=== PATIENT | male | born 1970 | race Caucasian/White ===

== ENCOUNTER 2016-11-02 11:37 | Emergency (ER) | payer OTHER ==
--- NOTE | 2016-11-02 13:20 | ED Physician Documentation ---
History of Present Illness - Stated complaint Stated Complaint: ARM/CHEST PX/ANXIETY ATTACK - Chief complaint Chief Complaint: General - History obtained from History obtained from: Patient - History of Present Illness Timing: How many weeks ago (several) Pain level max: 3 Pain level now: 0 Improved by: nothing Worsened by: nothing - Additonal information Additional information: Patient is a 46-year-old male who presented to the emergency department with intermittent numbness and tingling to the bilateral feet. States that his feet have been colder than usual as well. No leg pain. No pain when walking and playing 18 holes of golf. States that he golfs 18 holes almost daily. States that his mother recently and he had a panic attack last night. Feels better now. States that he did have slight chest pain at that time, but it was typical for his panic attack. Review of Systems Ten Systems: 10 systems reviewed and negative Constitutional: denies: Fever, Chills Nose: denies: Rhinorrhea / runny nose, Congestion Throat: denies: Sore throat Cardiac: denies: Palpitations, Pedal edema, Calf pain Respiratory: denies: Dyspnea, Cough, Hemoptysis, Wheezing GI: denies: Abdominal Pain, Nausea, Vomiting, Diarrhea Skin: denies: Rash Musculoskeletal: denies: Neck pain, Back pain Neurologic: denies: Headache PD PAST MEDICAL HISTORY - Past Medical History Cardiovascular: Hypertension, High cholesterol GI: Diverticulitis Psych: Anxiety - Past Surgical History Past Surgical History: Yes General: Gastric surgery - Present Medications Home Medications: Ambulatory Orders Medication Instructions Recorded Confirmed Hydrocodone/Acetaminophen [[place] 1 each PO Q6H PRN #20 tablet 05/18/16 11/02/16 5-325 Tablet] Losartan [Cozaar] 25 mg PO DAILY 05/18/16 11/02/16 Polyethylene Glycol 3350 [Miralax] 17 gm PO DAILY 05/18/16 11/02/16 busPIRone [Buspar] 25 mg PO BID 05/18/16 11/02/16 - Allergies Allergies/Adverse Reactions: Allergies Allergy/AdvReac Type Severity Reaction Status Date / Time No Known Drug Allergies Allergy Verified 05/18/16 20:28 - Social History Does the pt smoke?: No Smoking Status: Former smoker Does the pt drink ETOH?: Yes Does the pt have substance abuse?: No - Immunizations Immunizations are current?: Yes - POLST Patient has POLST: No PD ED PE NORMAL - Vitals Vital signs reviewed: Yes - General General: Alert and oriented X 3, No acute distress, Well developed/nourished - HEENT HEENT: PERRL, Moist mucous membranes - Neck Neck: Supple, no meningeal sign - Cardiac Cardiac: RRR, No murmur, Strong equal pulses - Respiratory Respiratory: No respiratory distress, Clear bilaterally - Abdomen Abdomen: Soft, Non tender, Non distended - Derm Derm: Warm and dry - Extremities Extremities: No deformity, No edema, No calf tenderness / cord, Other (2+ B pedal and PT pulses. NVI. Slight mottling to the skin.) - Neuro Neuro: Alert and oriented X 3, No motor deficit, No sensory deficit - Psych Psych: Normal mood, Normal affect Results - Vitals Vitals: Vital Signs - 24 hr 11/02/16 11/02/16 11:40 13:24 Temperature 36.3 C L 36.4 C L Heart Rate 69 59 L Respiratory 18 18 Rate Blood Pressure 140/98 H 139/99 H O2 Saturation 100 98 Oxygen O2 Source Room air - EKG (time done) 1151 Rate: Rate (enter#) (63) Rhythm: NSR [place]: Normal Intervals: Normal [place] QRS: Normal Ischemia: Normal ST segments Computer interpretation: Agree with computer PD MEDICAL DECISION MAKING - ED course Complexity details: reviewed results, re-evaluated patient, considered differential (No ST elevation [place], no aortic dissection, no PE, no tension pneumothorax, no aortic aneurysm), d/w patient ED course: Patient is a 46-year-old male who presents to the emergency department what appears to be an anxiety attack. He has a normal EKG. He declines any blood work or chest x-ray to evaluate for potential cardiac cause. He states that he notices anxiety and refuses any further workup for this. He also appears to have mottled feet bilaterally, though good pulses and brisk cap refill. Will have him follow-up with his doctor for further evaluation and care. Does not have symptoms of claudication and he does walk 18 holes of golf per day. Patient is well-appearing, nontoxic. Afebrile. Has been under recent stress since his mother a few days ago. Patient counseled regarding signs and symptoms for which I believe and urgent re-evaluation would be necessary. Patient with good understanding of and agreement to plan and is comfortable going home at this time This document was made in part using voice recognition software. While efforts are made to proofread this document, sound alike and grammatical errors may occur. Departure - Departure Disposition: 01 Home, Self Care Clinical Impression: Mottled skin, Anxiety Condition: Good Instructions: ED Panic Attack Follow-Up: Bruce Clement DO [Primary Care Provider] - Within 1 week Comments: You should follow up with your doctor to have further testing performed. This may include ultrasounds of your legs, thyroid testing, and tissue oxygenation of your feet. Return if you worsen. Your blood pressure was elevated today on check in to the emergency department. This does not mean that you have hypertension, it is a common phenomenon to check into the emergency department and have elevated blood pressure. I recommend that you see your primary care physician within the week to have it rechecked when you're feeling better. Discharge Date/Time: 11/02/16 13:29
[2016-11-02 13:25] VITALS: BP 139/99
== END 2016-11-02 13:29 | disposition home or self-care (01) ==
LOC: ED 11:37
DX: L98.8 Other specified disorders of the skin and subcutaneous tissue (principal); I10 Essential (primary) hypertension; E78.00 Pure hypercholesterolemia, unspecified; Z87.19 Personal history of other diseases of the digestive system; Z87.891 Personal history of nicotine dependence
CPT/HCPCS: 93005; 93010; 99283

== ENCOUNTER 2017-06-21 14:00 | Emergency (ER) | payer OTHER ==
--- NOTE | 2017-06-21 14:10 | ED Physician Documentation ---
History of Present Illness - Stated complaint Stated Complaint: SOA/DIZZY/CP - Chief complaint Chief Complaint: Cardiac - Additonal information Additional information: hx from pt 47 male hx HTN fhx vascular dz has fairly severe anxiety that always makes him feel soa he is more SOA than nl last theee days with chest tightness and today about 1 hr had near syncope and still feels weak with achey tingly extremities Review of Systems Constitutional: denies: Fever Throat: denies: Sore throat Cardiac: reports: Chest pain / pressure Respiratory: reports: Dyspnea GI: denies: Abdominal Pain, Nausea, Vomiting Musculoskeletal: denies: Neck pain, Back pain, Extremity pain, Extremity swelling Endocrine: denies: Easy bruising / bleeding Immunocompromised: denies: Immunocompromised PD PAST MEDICAL HISTORY - Past Medical History Cardiovascular: Hypertension, High cholesterol GI: Diverticulitis Psych: Anxiety - Past Surgical History Past Surgical History: Yes General: Gastric surgery - Present Medications Home Medications: Ambulatory Orders Medication Instructions Recorded Confirmed Losartan [Cozaar] 50 mg PO DAILY 05/18/16 11/02/16 Polyethylene Glycol 3350 [Miralax] 17 gm PO DAILY 05/18/16 11/02/16 Cetirizine [ZyrTEC] 10 mg PO DAILY 06/21/17 06/21/17 LORazepam [Ativan] 0.5 mg PO DAILY PRN #6 tablet 06/21/17 - Allergies Allergies/Adverse Reactions: Allergies Allergy/AdvReac Type Severity Reaction Status Date / Time No Known Drug Allergies Allergy Verified 05/18/16 20:28 - Social History Does the pt smoke?: No Smoking Status: Former smoker Does the pt drink ETOH?: Yes Does the pt have substance abuse?: No - Immunizations Immunizations are current?: Yes - POLST Patient has POLST: No PD ED PE NORMAL - Vitals Vital signs reviewed: Yes - Neck Neck: Supple, no meningeal sign - Cardiac Cardiac: RRR, No murmur - Respiratory Respiratory: No respiratory distress, Clear bilaterally - Abdomen Abdomen: Soft, Non tender - Derm Derm: Normal color - Extremities Extremities: No deformity, Normal ROM s pain, No edema, No calf tenderness / cord - Neuro Neuro: Alert and oriented X 3 Results - Vitals Vitals: Vital Signs - 24 hr 06/21/17 14:04 Temperature 36.6 C Heart Rate 68 Respiratory 20 Rate Blood Pressure 136/98 H O2 Saturation 100 Oxygen O2 Source Room air - EKG (time done) 1409 Rate: Rate (enter#) (70) Rhythm: NSR Intervals: RBBB (new from October 2016) Ischemia: No: ST elevation c/w ischemia - Labs Labs: Laboratory Tests 06/21/17 06/21/17 06/21/17 14:12 14:12 14:12 WBC 6.3 RBC 4.77 Hgb 15.8 Hct 45.7 MCV 95.8 H MCH 33.1 H MCHC 34.6 RDW 13.2 Plt Count 212 MPV 9.1 Neut # 3.5 Lymph # 1.8 [place] # 0.6 Eos # 0.3 Baso # 0.1 Absolute Nucleated RBC 0.00 Nucleated RBC % 0.0 D-Dimer Sodium 141 Potassium 4.2 Chloride 106 Carbon Dioxide 28 Anion Gap 7.0 BUN 16 Creatinine 1.0 Estimated GFR (MDRD) 80 L Glucose 73 Calcium 8.9 Total Bilirubin 0.8 AST 19 ALT 14 Alkaline Phosphatase 104 Troponin I < 0.04 Total Protein 7.1 Albumin 4.5 Globulin 2.6 Albumin/Globulin Ratio 1.7 Lipase 22 06/21/17 14:12 WBC RBC Hgb Hct MCV MCH MCHC RDW Plt Count MPV Neut # Lymph # [place] # Eos # Baso # Absolute Nucleated RBC Nucleated RBC % D-Dimer < 200.0 L Sodium Potassium Chloride Carbon Dioxide Anion Gap BUN Creatinine Estimated GFR (MDRD) Glucose Calcium Total Bilirubin AST ALT Alkaline Phosphatase Troponin I Total Protein Albumin Globulin Albumin/Globulin Ratio Lipase - Rads (name of study) CXR Radiology: See rad report (NACPD) PD MEDICAL DECISION MAKING - ED course ED course: RBBB is new raises concern of PE but no risk factors, no leg pain or swelling,neg PERC neg d dimer and neg trop after 3 days of CP and SOA today with near syncope as well tele in ER for several hr and no ectopy unable to admit to [facility] today for further tele and echo due to tele not working on med surg pt feeling better after ativan states he walked 18 holes of gold a few days ago without any sx will dc to p PMD for recheck and perhaps event monitor and echo as an outpt Departure - Departure Disposition: 01 Home, Self Care Clinical Impression: Near syncope Chest pain Qualifiers: Chest pain type: unspecified Qualified Code(s): R07.9 - Chest pain, unspecified Dyspnea Qualifiers: Dyspnea type: unspecified Qualified Code(s): R06.00 - Dyspnea, unspecified Condition: Good Instructions: ED Chest Pain Atypical Unkn Cause, ED Dyspnea Shortness of Breath , ED Near Syncope Unkn Follow-Up: Bruce Clement DO [Primary Care Provider] - Prescriptions: LORazepam [Ativan] 0.5 mg PO DAILY PRN #6 tablet PRN Reason: severe anxiety Comments: All your tests today came back fine - the EKG showed an electric delay called a right bundle branch block but the blood work does not suggest a heart attack or blood clot in the lung and the xray does not show any lung problems, congestive heart failure, an enlarged heart or an aneurysm of the aorta. Since you are feeling better and your labs are reassuring, I think it is safe for you to go home. You take ativan very sparingly if the anxiety is severe Please follow up with your PMD for a recheck before the weekend and to discuss a wear at home heart monitor and ultrasound of your heart Return if worse
[2017-06-21 14:22] LABS: BASOPHILS # (AUTO) 0.1 10^3/uL (0.0-0.1); BASOPHILS % (AUTO) 1.1 %; EOSINOPHILS # (AUTO) 0.3 10^3/uL (0.0-0.7); HGB - HEMOGLOBIN 15.8 g/dL (14.0-18.0); LYMPHOCYTES # (AUTO) 1.8 10^3/uL (1.5-3.5); LYMPHOCYTES % (AUTO) 28.1 %; MEAN CORPUSCULAR HEMOGLOBIN 33.1 pg (27.0-31.0); MEAN CORPUSCULAR HGB CONC 34.6 g/dL (32.0-36.0); MEAN CORPUSCULAR VOLUME 95.8 fL (80.0-94.0); MEAN PLATELET VOLUME 9.1 fL (7.4-11.4); MONOCYTES # (AUTO) 0.6 10^3/uL (0.0-1.0); MONOCYTES % (AUTO) 9.5 %; NEUTROPHILS # (AUTO) 3.5 10^3/uL (1.5-6.6); NEUTROPHILS % (AUTO) 56.3 %; PLT - PLATELET COUNT 212 10^3/uL (130-450); RED BLOOD COUNT 4.77 10^6/uL (4.70-6.10); RED CELL DISTRIBUTION WIDTH 13.2 % (12.0-15.0); WHITE BLOOD COUNT 6.3 x10^3/uL (4.8-10.8)
[2017-06-21] MEDS ORDERED: LORazepam 0.5 MG TABLET PO STA (14:25)
[2017-06-21 14:47] LABS: ALBUMIN 4.5 g/dL (3.2-5.5); ALBUMIN/GLOBULIN RATIO 1.7 (1.0-2.2); BILIRUBIN,TOTAL 0.8 mg/dL (0.2-1.0); CALCIUM 8.9 mg/dL (8.5-10.3); TOTAL PROTEIN 7.1 g/dL (6.7-8.2)
--- NOTE | 2017-06-21 14:51 | XRAY Report ---
EXAM: CHEST RADIOGRAPHY EXAM DATE: 06/21/2017 02:41 PM. CLINICAL HISTORY: Short of breath, pain. COMPARISON: None. TECHNIQUE: 2 views. FINDINGS: Lungs/Pleura: No localized infiltrate, consolidation, effusion, or pneumothorax. Mediastinum: Heart and mediastinal contours are unremarkable. Upper lobe vessels not distended. Other: None. IMPRESSION: No acute disease. [facility] Referring Provider Line: [phone] SITE ID: [id number]
[2017-06-21 15:54] VITALS: BP 119/83
== END 2017-06-21 16:01 | disposition home or self-care (01) ==
LOC: ED 14:00
DX: R55 Syncope and collapse (principal); R07.9 Chest pain, unspecified; R06.00 Dyspnea, unspecified; I45.2 Bifascicular block; I10 Essential (primary) hypertension; E78.00 Pure hypercholesterolemia, unspecified; Z87.891 Personal history of nicotine dependence
CPT/HCPCS: 36415; 71046; 80053; 83690; 84484; 85025; 85379; 93005; 99283; 99284; A9270

== ENCOUNTER 2017-07-05 22:00 | Emergency (ER) | payer OTHER ==
[2017-07-05] MEDS ORDERED: SODIUM CHLORIDE 0.9% 1,000 ML IV ONE (22:36)
[2017-07-05] MEDS ORDERED: MORPHINE 10 MG/ML VIAL IVP STA (22:36)
[2017-07-05] MEDS ORDERED: ONDANSETRON 4 MG/2 ML VIAL IVP STA (22:37)
[2017-07-05 22:43] LABS: BASOPHILS # (AUTO) 0.1 10^3/uL (0.0-0.1); EOSINOPHILS # (AUTO) 0.3 10^3/uL (0.0-0.7); EOSINOPHILS % (AUTO) 4.5 %; HGB - HEMOGLOBIN 14.9 g/dL (14.0-18.0); LYMPHOCYTES # (AUTO) 2.6 10^3/uL (1.5-3.5); LYMPHOCYTES % (AUTO) 33.6 %; MEAN CORPUSCULAR HEMOGLOBIN 32.6 pg (27.0-31.0); MEAN CORPUSCULAR HGB CONC 33.7 g/dL (32.0-36.0); MEAN CORPUSCULAR VOLUME 96.7 fL (80.0-94.0); MEAN PLATELET VOLUME 9.4 fL (7.4-11.4); MONOCYTES # (AUTO) 0.5 10^3/uL (0.0-1.0); MONOCYTES % (AUTO) 6.9 %; NEUTROPHILS # (AUTO) 4.2 10^3/uL (1.5-6.6); PLT - PLATELET COUNT 219 10^3/uL (130-450); RED BLOOD COUNT 4.56 10^6/uL (4.70-6.10); RED CELL DISTRIBUTION WIDTH 13.3 % (12.0-15.0); WHITE BLOOD COUNT 7.8 x10^3/uL (4.8-10.8)
[2017-07-05 22:50] LABS: ALBUMIN 5.1 g/dL (3.2-5.5); BILIRUBIN,TOTAL 0.7 mg/dL (0.2-1.0); CALCIUM 9.2 mg/dL (8.5-10.3); CREATININE 0.9 mg/dL (0.6-1.2); TOTAL PROTEIN 7.6 g/dL (6.7-8.2)
[2017-07-05 22:55] LABS: BILIRUBIN,URINE NEGATIVE (NEGATIVE); GLUCOSE, URINE (UA) NEGATIVE (NEGATIVE); KETONES,URINE (UA) NEGATIVE (NEGATIVE); LEUKOCYTE ESTERASE, URINE NEGATIVE (NEGATIVE); NITRITE,URINE NEGATIVE (NEGATIVE); OCCULT BLOOD,URINE NEGATIVE (NEGATIVE); PH,URINE 6.5 PH (5.0-7.5); PROTEIN,URINE NEGATIVE (NEGATIVE); UROBILINOGEN,URINE 0.2 (NORMAL) E.U./dL (NORMAL)
[2017-07-05 22:57] LABS: CLARITY,URINE CLEAR (CLEAR)
[2017-07-05] MEDS ORDERED: IOPAMIDOL-300 100 ML VIAL ONE (23:01)
[2017-07-05] MEDS ORDERED: IOPAMIDOL-300 100 ML VIAL IVP ONE (23:18)
--- NOTE | 2017-07-05 23:33 | CT Report ---
EXAM: CT ABDOMEN AND PELVIS EXAM DATE: 07/05/2017 11:23 PM. CLINICAL HISTORY: Periumbilical pain, nausea, gastric bypass. COMPARISONS: None. TECHNIQUE: Routine helical CT imaging was performed through the abdomen and pelvis. IV contrast: 100M L ISOVUE 300. Enteric contrast: No. Reconstructions: Coronal and sagittal. In accordance with CT protocol optimization, one or more of the following dose reduction techniques w ere utilized for this exam: automated exposure control, adjustment of mA and/or KV based on patient s ize, or use of iterative reconstructive technique. FINDINGS: Lung Bases: Unremarkable. Liver: No focal lesion identified. Gallbladder/Bile Ducts: Unremarkable. Spleen: Normal. Pancreas: Normal. Adrenal Glands: Normal. Kidneys: Normal. No masses or hydronephrosis. Peritoneal Cavity/Bowel: Status post gastric bypass. No bowel obstruction seen. Colonic diverticula. No definite diverticulitis. No free air or free fluid. No lymphadenopathy. Appendix appears normal. Pelvic Organs: Normal. The bladder and visualized pelvic organs are within normal limits. Vasculature: No aneurysms or other significant abnormality. Bones: No significant abnormality. Other: None. IMPRESSION: 1. Status post gastric bypass. No bowel obstruction seen. 2. Appendix appears normal. 3. Colonic diverticula. No definite diverticulitis. [facility] Referring Provider Line: [phone] SITE ID: [id number]
--- NOTE | 2017-07-05 23:33 | CT Preliminary Report ---
Exam: CT ABDOMEN/PELVIS W/ IMPRESSION: 1. Status post gastric bypass. No bowel obstruction seen. 2. Appendix appears normal. 3. Colonic diverticula. No definite diverticulitis. [facility] SITE ID: [id number]
--- NOTE | 2017-07-05 23:55 | ED Physician Documentation ---
PD HPI ABD PAIN - Stated complaint Stated Complaint: ABD PX - Chief complaint Chief Complaint: Abd Pain - History obtained from History obtained from: Patient, Family - History of Present Illness Timing - onset: Today Timing - details: Abrupt onset, Still present Quality: Cramping, Aching Location: Periumbilical Worsened by: Palpation Associated symptoms: Nausea. No: Fever, Vomiting, Hematemesis, Diarrhea, Constipation Similar symptoms before: No diagnosis Recently seen: Not recently seen - Additional information Additional information: patient is a 47 year old male s/p gastric bypass who is presenting to the emergency department for right lower quadrant pain. According to patient and family patient was sitting down at work and he developed severe periumbilical pain, and mild nausea but no vomiting. Patient states that he had a normal bowel movement today. Review of Systems Constitutional: denies: Fever, Chills Eyes: reports: Reviewed and negative Ears: reports: Reviewed and negative Nose: reports: Reviewed and negative Throat: reports: Reviewed and negative Cardiac: denies: Chest pain / pressure, Palpitations Respiratory: denies: Dyspnea, Cough, Wheezing GI: reports: Abdominal Pain, Nausea. denies: Vomiting, Constipation, Diarrhea : denies: Dysuria, Frequency, Hesitancy Skin: denies: Rash, Lesions Musculoskeletal: denies: Back pain Neurologic: denies: Generalized weakness, Focal weakness Psychiatric: reports: Anxiety Immunocompromised: denies: Immunocompromised PD PAST MEDICAL HISTORY - Past Medical History Cardiovascular: Hypertension, High cholesterol GI: Diverticulitis Psych: Anxiety - Past Surgical History Past Surgical History: Yes General: Gastric surgery - Present Medications Home Medications: Ambulatory Orders Medication Instructions Recorded Confirmed Losartan [Cozaar] 50 mg PO DAILY 05/18/16 07/05/17 Polyethylene Glycol 3350 [Miralax] 17 gm PO DAILY 05/18/16 07/05/17 Cetirizine [ZyrTEC] 10 mg PO DAILY 06/21/17 07/05/17 - Allergies Allergies/Adverse Reactions: Allergies Allergy/AdvReac Type Severity Reaction Status Date / Time No Known Drug Allergies Allergy Verified 05/18/16 20:28 - Social History Does the pt smoke?: No Smoking Status: Never smoker Does the pt drink ETOH?: Yes Does the pt have substance abuse?: No - Immunizations Immunizations are current?: Yes - POLST Patient has POLST: No PD ED PE NORMAL - Vitals Vital signs reviewed: Yes - General General: Alert and oriented X 3 - HEENT HEENT: Atraumatic, PERRL, Moist mucous membranes - Neck Neck: Supple, no meningeal sign - Cardiac Cardiac: RRR, No murmur - Respiratory Respiratory: No respiratory distress - Abdomen Abdomen: Soft - Derm Derm: Normal color, Warm and dry, No rash - Extremities Extremities: No deformity, No edema - Neuro Neuro: Alert and oriented X 3, No motor deficit, No sensory deficit, Normal speech PD ED PE EXPANDED - General General: Alert, Anxious, In Pain - Abdomen Abdomen: Tender to palpation, Periumbilical. No: Distended, Rebound, Guarding Results - Vitals Vitals: Vital Signs - 24 hr 07/05/17 22:04 Temperature 36.6 C Heart Rate 66 Respiratory 16 Rate Blood Pressure 154/106 H O2 Saturation 100 Oxygen O2 Source Room air - Labs Labs: Laboratory Tests 07/05/17 07/05/17 07/05/17 22:22 22:22 22:44 WBC 7.8 RBC 4.56 L Hgb 14.9 Hct 44.1 MCV 96.7 H MCH 32.6 H MCHC 33.7 RDW 13.3 Plt Count 219 MPV 9.4 Neut # 4.2 Lymph # 2.6 [place] # 0.5 Eos # 0.3 Baso # 0.1 Absolute Nucleated RBC 0.00 Nucleated RBC % 0.0 Sodium 141 Potassium 3.5 Chloride 106 Carbon Dioxide 27 Anion Gap 8.0 BUN 14 Creatinine 0.9 Estimated GFR (MDRD) 91 Glucose 96 Calcium 9.2 Total Bilirubin 0.7 AST 19 ALT 16 Alkaline Phosphatase 99 Total Protein 7.6 Albumin 5.1 Globulin 2.5 Albumin/Globulin Ratio 2.0 Lipase 23 Urine Color YELLOW Urine Clarity CLEAR Urine pH 6.5 Ur Specific [place] 1.025 Urine Protein NEGATIVE Urine Glucose (UA) NEGATIVE Urine Ketones NEGATIVE Urine Occult Blood NEGATIVE Urine Nitrite NEGATIVE Urine Bilirubin NEGATIVE Urine Urobilinogen 0.2 (NORMAL) Ur Leukocyte Esterase NEGATIVE Ur Microscopic Review NOT INDICATED Urine Culture Comments NOT INDICATED - Rads (name of study) ct abdomen and pelvis Radiology: Final report received (no acute appendicitis or signs of obstruction) , See rad report PD MEDICAL DECISION MAKING - ED course Complexity details: reviewed old records, reviewed results, re-evaluated patient , considered differential, d/w patient, d/w family ED course: Patient was seen and examined at bedside. IV access was gained and labs were drawn. patient was treated with a fluid bolus, zofran and morphine. Imaging was ordered. When patient returned from imaging the results were reviewed. there were no acute significant abnormalities. Patient's pain had resolved and he had no episodes of emesis while in the emergency department. Patient and family were given detailed discharge and follow up instructions and were stable for discharge with outpatient follow up. Departure - Departure Disposition: 01 Home, Self Care Clinical Impression: Abdominal pain Condition: Good Instructions: Abdominal Pain Follow-Up: Bruce Clement DO [Primary Care Provider] - Comments: Your diagnostics today were within normal limits. there is no sign of infection or obstruction. You do have a moderate amount of gas that could be causing the pain. It is also possible that we are very early in the disease process. You should follow up with your doctor if your symptoms persist. Or you may return to the emergency department at any time for new, worsening or uncontrollable symptoms.
[2017-07-06 01:02] VITALS: BP 140/99
== END 2017-07-06 | disposition home or self-care (01) ==
LOC: ED 22:00
DX: R10.33 Periumbilical pain (principal); R10.31 Right lower quadrant pain; R11.0 Nausea; R14.0 Abdominal distension (gaseous); K57.30 Diverticulosis of large intestine without perforation or abscess without bleeding; I10 Essential (primary) hypertension; Z98.84 Bariatric surgery status
CPT/HCPCS: 36415; 74177; 80053; 81003; 83690; 85025; 96361; 96374; 96375; 99283; 99284; Q9967; 81001; 87086